=== PATIENT | female | born 1955 | race Hispanic/Latino ===

== ENCOUNTER 2024-06-24 14:56 | Emergency (ER) | payer BC, MEDICARE ==
[~2024-06-24] VITALS: Ht 152.4 cm; Wt 61.2 kg
[2024-06-24] MEDS ORDERED: PEG 3350/NA SULF,BICARB,CL/KCL 4000 ML SOLN PO ONE (15:30)
--- NOTE | 2024-06-24 15:55 | HMCIMG ---
Exam Type: ABD 1VW Clinical Information: CONSTIPATION Comparison: None Findings: Abdomen demonstrates no evidence of pathologic calcification or soft tissue mass. There are no radiopacities to suggest calculous disease. The intestinal gas pattern is within normal limits without evidence of dilatation to suggest obstruction or adynamic ileus. The bony structures are unremarkable. Postoperative changes lumbosacral junction and status post cholecystectomy. IMPRESSION: Normal abdomen.
[2024-06-24 16:48] LABS: BASOPHILS # (AUTO) 0.04 K/uL (0.00-0.20); BASOPHILS % (AUTO) 0.5 % (0.0-5.0); EOSINOPHILS # (AUTO) 0.15 K/uL (0.00-0.70); EOSINOPHILS % (AUTO) 1.8 % (0.0-8.0); HEMATOCRIT 40.6 % (36-48); IMMATURE GRANULOCYTE ABSOLUTE 0.03 K/uL (0-1); LYMPHOCYTES % (AUTO) 23.3 % (21.0-51.0); MEAN CORPUSCULAR HEMOGLOBIN 32.6 pg (27.0-33.0); MEAN CORPUSCULAR HGB CONC 32.8 g/dL (32.0-36.0); MEAN CORPUSCULAR VOLUME 99.5 fL (79-99); MONOCYTES # (AUTO) 0.7 K/uL (0.1-1.0); MONOCYTES % (AUTO) 7.8 % (3.0-13.0); NEUTROPHILS # (AUTO) 5.6 K/uL (1.8-7.7); NEUTROPHILS % (AUTO) 66.2 % (40.0-77.0); PLATELET COUNT (AUTO) 113 K/uL (130-400); RED BLOOD CELL COUNT(AUTO) 4.08 MIL/uL (4.00-5.50); WHITE BLOOD COUNT (AUTO) 8.4 K/uL (4.8-10.8)
[2024-06-24 16:50] LABS: CREATININE 0.9 mg/dL (0.5-1.0); POTASSIUM 3.6 mmol/L (3.5-5.1)
[2024-06-24 17:05] VITALS: BP 141/67; PULSE 85; RESP 16; TEMP 98.3; O2SAT 97
[2024-06-24] MEDS: MAGNESIUM CITRATE 296 ML SOLUTION PO ONE (17:30)
[2024-06-24 17:31] LABS: APPEARANCE,URINE CLEAR (CLEAR); BILIRUBIN,URINE NEGATIVE (NEGATIVE); COLOR,URINE LIGHT-YELLOW (YELLOW); GLUCOSE, URINE (UA) NEGATIVE (NEGATIVE); KETONES,URINE NEGATIVE (NEGATIVE); LEUKOCYTE ESTERASE ,URINE NEGATIVE Leu/uL (NEGATIVE); NITRATE,URINE NEGATIVE (NEGATIVE); OCCULT BLOOD,URINE MODERATE (NEGATIVE); PROTEIN,URINE 30 mg/dL (NEGATIVE); UROBILINOGEN,URINE 0.2 mg/dL (0.2-1.0)
[2024-06-24 17:41] LABS: BACTERIA,URINE RARE /HPF (None Seen); SQUAMOUS EPITHELIAL CELL,UR RARE /HPF (0-2)
--- NOTE | 2024-06-24 17:55 | ERN ---
General Chief Complaint: Back Pain-No Injury Stated Complaint: LEFT LOWER BACK PAIN Source: patient History of Present Illness Initial Comments PATIENT IS A 60-YEAR-OLD FEMALE COMING IN TO BE EVALUATED FOR LEFT FLANK PAIN. PATIENT STATES THE FLANK PAIN BEGAN A COUPLE OF DAYS AGO. ALONG WITH THIS PATIENT STATES THAT HE HAS BEEN HAVING PROBLEMS DEFECATING. NO FEVER OR CHILLS. Allergies: Coded Allergies: No Known Allergies (Unverified Allergy, Unknown, 06/24/24) Past Medical History Past Medical History: Anxiety, Diabetes-Type II, High Cholesterol, Hypertension Past Surgical History: Cholecystectomy, Other Surgical History Other: BACK SX, SHOULDER ROS Dictation CONSTITUTIONAL: NO CHILLS, NO FEVER, NO WEAKNESS, NO DIAPHORESIS, NO MALAISE. HEAD/FACE: NO SIGNS OF TRAUMA. EENT: NO EYE PAIN, NO BLURRED VISION, NO TEARING, NO DOUBLE VISION, NO EAR PAIN, NO EAR DISCHARGE, NO NOSE PAIN, NO NASAL CONGESTION, NO THROAT PAIN, NO THROAT SWELLING, NO MOUTH PAIN. RESPIRATORY: NO COUGH, NO ORTHOPNEA, NO SOB, NO STRIDOR, NO WHEEZING. CARDIOVASCULAR: NO CHEST PAIN, NO EDEMA, NO PALPITATIONS, NO SYNCOPE. GASTROINTESTINAL/ABDOMINAL: NO ABDOMINAL PAIN, NO CONSTIPATION, NO DIARRHEA, NO NAUSEA, NO VOMITING. GENITOURINARY: NO ABNORMAL DISCHARGE, NO DYSURIA, NO FREQUENT URINATION, NO HE MATURIA. NO COMPLAINTS OF PAIN IN THE GENITALS. MUSCULOSKELETAL: NO BACK PAIN, NO GOUT, NO JOINT PAIN, NO JOINT SWELLING, NO M USCLE PAIN, NO MUSCLE STIFFNESS, NO NECK PAIN. INTEGUMENTARY: NO CHANGE IN COLOR, NO CHANGE IN HAIR/NAILS, NO DRYNESS, NO LESI ON, NO LUMPS, NO RASH. NEUROLOGICAL/PSYCH: NO ANXIETY, NOT DEPRESSED, NO EMOTIONAL PROBLEM, NO HEADACHE, NO NUMBNESS, NO PRE-EXISTING DEFICIT, NO HISTORY OF SEIZURES, NO TREMORS, NO WEAKNESS. HEMATOLOGIC/LYMPHATIC: NOT ANEMIC, NO HISTORY OF BLOOD CLOTS, NO APPARENT BLEEDING, NO BRUISING, GLANDS NOT SWOLLEN. ALL SYSTEMS NEGATIVE, EXCEPT NOTED. Physical Exam Physical Exam Dictation VITAL SIGNS: REVIEWED. GENERAL APPEARANCE: ALERT, ORIENTED X3, NO ACUTE DISTRESS, OBESE. HEAD AND FACE: NON-TRAUMATIC. EYES: PERRL, PINK CONJUNCTIVAS, EYELID NO TRAUMA, ANTERIOR CHAMBER CLEAR. EARS: PINNAS INTACT AND NO SIGNS OF TRAUMA OR ERYTHEMA. EAR CANALS CLEAR AND NO DISCHARGE. TMS NO ERYTHEMA. NOSE: NO DISCHARGE, NO BLEEDING. OROPHARYNX: MOUTH NORMAL, TEETH NO CARIES, TONGUE PINK. PHARYNX CLEAR, NO ERYTHEMA. TONSILS NO EXUDATES, NO ABSCESSES NOTED. MUCOUS MEMBRANE MOIST. NECK: SUPPLE, NON-TENDER, NO THYROMEGALY, NO MASSES, NO JVD, NO BRUITS. BREAST: DEFERRED. CHEST: NO TENDERNESS, NO CREPITUS, NO PARADOXICAL MOVEMENT, NO RETRACTIONS. LUNGS: CLEAR, WELL-VENTILATED, SYMMETRIC, NO RALES, NO WHEEZING, NO RHONCHI, NO STRIDOR, GOOD BREATH SOUNDS BILATERALLY. HEART: REGULAR RATE, REGULAR RHYTHM, NO MURMUR, NO GALLOPS. VASCULAR: NO PERIPHERAL EDEMA. ABDOMEN: SOFT, POSITIVE BOWEL SOUNDS, NONDISTENDED, NO GUARDING, NONTENDER, NO REBOUND, NO MASSES NO HEPATOMEGALY, NO SPLENOMEGALY, NO LA'S SIGN, NO HERNIAS. RECTAL: DEFERRED. GENITAL: DEFERRED. NEUROLOGICAL: NORMAL SPEECH, GROSS MOTOR FUNCTION INTACT, GROSS SENSORY FUNCTION INTACT. MUSCULOSKELETAL: NECK NONTENDER, FULL RANGE OF MOTION, BACK NONTENDER, FULL RANGE OF MOTION. EXTREMITIES: NONTENDER, FULL RANGE OF MOTION. SKIN: COLOR PINK, DRY, NO TURGOR, NO RASH, NO LACERATIONS, NO ABRASIONS, NO CONTUSIONS. LYMPHATICS: DEFERRED. Results Laboratory and Microbiology Lab and Micro Result Laboratory Tests Test 06/24/24 16:10 06/24/24 17:18 White Blood Count 8.4 K/uL (4.8-10.8) Red Blood Count 4.08 MIL/uL (4.00-5.50) Hemoglobin 13.3 g/dL (12.0-16.0) Hematocrit 40.6 % (36-48) Mean Corpuscular Volume 99.5 fL (79-99) H Mean Corpuscular Hemoglobin 32.6 pg (27.0-33.0) Mean Corpuscular Hemoglobin Concent 32.8 g/dL (32.0-36.0) Red Cell Distribution Width 14.0 % (11.0-15.5) Platelet Count 113 K/uL (130-400) L Mean Platelet Volume 12.4 fL (7.5-10.5) H Immature Granulocyte % (Auto) 0.4 % (0-1) Neutrophils (%) (Auto) 66.2 % (40.0-77.0) Lymphocytes (%) (Auto) 23.3 % (21.0-51.0) Monocytes (%) (Auto) 7.8 % (3.0-13.0) Eosinophils (%) (Auto) 1.8 % (0.0-8.0) Basophils (%) (Auto) 0.5 % (0.0-5.0) Neutrophils # (Auto) 5.6 K/uL (1.8-7.7) Lymphocytes # (Auto) 2.0 K/uL (1.0-4.8) Monocytes # (Auto) 0.7 K/uL (0.1-1.0) Eosinophils # (Auto) 0.15 K/uL (0.00-0.70) Basophils # (Auto) 0.04 K/uL (0.00-0.20) Absolute Immature Granulocyte (auto 0.03 K/uL (0-1) Nucleated Red Blood Cells 0.0 % (0.0-0.19) Sodium Level 141 mmol/L (136-145) Potassium Level 3.6 mmol/L (3.5-5.1) Chloride Level 102 mmol/L (101-111) Carbon Dioxide Level 30 mmol/L (21-32) Blood Urea Nitrogen 10 mg/dL (7-18) Creatinine 0.9 mg/dL (0.5-1.0) Glomerular Filtration Rate Calc 70 mL/min (>90) Random Glucose 97 mg/dL (70-105) Total Calcium 9.3 mg/dL (8.5-10.1) Urine Color LIGHT-YELLOW (YELLOW) Urine Appearance CLEAR (CLEAR) Urine pH 6.0 (5.0-8.0) Urine Specific Kathryn 1.004 (1.001-1.031) Urine Protein 30 mg/dL (NEGATIVE) H Urine Glucose (UA) NEGATIVE mg/dL (NEGATIVE) Urine Ketones NEGATIVE mg/dL (NEGATIVE) Urine Occult Blood MODERATE (NEGATIVE) H Urine Nitrate NEGATIVE (NEGATIVE) Urine Bilirubin NEGATIVE mg/dL (NEGATIVE) Urine Urobilinogen 0.2 mg/dL (0.2-1.0) Urine Leukocyte Esterase NEGATIVE Brenda/uL Urine RBC 2-5 /HPF (0-1) H Urine WBC 2-5 /HPF (0-1) H Urine Squamous Epithelial Cells RARE /HPF (0-2) Urine Bacteria RARE /HPF (None Seen) Labs Reviewed?: Yes EKG/XRAY/US/CT/MRI X-RAY Comment [place] [id number] [id number] IMAGING REPORT Signed PATIENT: TITUS HILLIARD MR#: [id number] : 1955 SEX: F AGE: 68 LOCATION: ED ORDER 151 STATUS: REG ER REPORT#: [id number] SERVICE [id number] REASON: CONSTIPATION ORDERING PHYSICIAN: DEMI OLGUIN MD PROCEDURE: ABD 1VW - ABD 1VW Exam Type: ABD 1VW Clinical Information: CONSTIPATION Comparison: None Findings: Abdomen demonstrates no evidence of pathologic calcification or soft tissue mass. There are no radiopacities to suggest calculous disease. The intestinal gas pattern is within normal limits without evidence of dilatation to suggest obstruction or adynamic ileus. The bony structures are unremarkable. Postoperative changes lumbosacral junction and status post cholecystectomy. IMPRESSION: Normal abdomen. DICTATED BY: NERY RIDDLE MD DATE: 06/24/241551 ELECTRONICALLY SIGNED BY: NERY RIDDLE MD DATE: 06/24/[address] Scan Comment [place] [id number] [id number] IMAGING REPORT Signed PATIENT: TITUS HILLIARD MR#: [id number] : 1955 SEX: F AGE: 68 LOCATION: ED ORDER 53 STATUS: REG ER REPORT#: [id number] SERVICE 175 REASON: LEFT FLANK PAIN ORDERING PHYSICIAN: DEMI OLGUIN MD PROCEDURE: ABD PEL WO - CT ABDOMEN/PELVIS W/O CONTRAST CT ABDOMEN/PELVIS W/O CONTRAST INDICATION: LEFT FLANK PAIN TECHNIQUE: CT ABDOMEN/PELVIS W/O CONTRAST. Oral contrast was not given. Coronal and sagittal reformats were performed. CT was performed with one or more of the following dose reduction techniques: Automated exposure control, adjustment of the mA and/or kV according to the patient's size, or use of the iterative reconstruction technique. Comparison: 11/16/2009 FINDINGS: The noncontrast nature this study limits evaluation of abdominal viscera. Mild atelectatic changes are seen in the lung bases. There is hepatic steatosis. Cholecystectomy changes are noted. Stable appearance of the spleen, pancreas and adrenal glands. No hydronephrosis or renal calculus is seen. Indeterminate density in the left kidney measuring 1.4 cm. Consider correlation with nonemergent ultrasound. Heterogeneous mass seen in the pelvis measuring 10.2 x 6.7 cm which may may represent lobulated uterus versus malignancy. Consider correlation with pelvic ultrasound. Small amount of free fluid is seen in the pelvis and lower abdomen. Diverticulosis coli without evidence of acute diverticulitis. There is no free abdominal air. No bowel obstruction identified. Appendix is normal in caliber. Atherosclerotic changes of the aorta with calcified plaques. Degenerative changes of the spine are seen. IMPRESSION: No hydronephrosis or renal calculus is seen. Indeterminate density in the left kidney measuring 1.4 cm. Consider correlation with nonemergent ultrasound. Heterogeneous mass seen in the pelvis measuring 10.2 x 6.7 cm which may may represent lobulated uterus versus malignancy. Consider correlation with pelvic ultrasound. Small amount of free fluid is seen in the pelvis and lower abdomen. Diverticulosis coli without evidence of acute diverticulitis. DICTATED BY: STEPHANIE GELLER MD DATE: 06/24/241856 ELECTRONICALLY SIGNED BY: STEPHANIE GELLER MD DATE: 06/24/24 190 [facility] MDM: DIFFERENTIAL DIAGNOSIS: RIGHT KIDNEY MASS, UTERINE MASS, PATIENT IS A 68-YEAR-OLD FEMALE COMING IN TO BE EVALUATED FOR RIGHT SIDED BACK PAIN. CT DISCLOSE A RIGHT RENAL MASS AND THE RIGHT UTERINE MASS. ADVISED HER A PPROPRIATE FOLLOW UP WITH PCP AND FURTHER EVALUATION BY MEDICAL TECH. PATIENT WILL BE DISCHARGED IN STABLE CONDITION. ED Course Orders Procedure Category Date Status Time Cbc With Differential LAB 06/24/24 Complete 15:09 Basic Metabolic Panel LAB 06/24/24 Complete 15:09 Urinalysis LAB 06/24/24 Complete W/Microscopic 15:09 Abd 1vw RAD 06/24/24 Resulted 15:09 Peg 3350/Na PHA 2/15/25 Complete Sulf,Bicarb,Cl/Kcl 15:30 Magnesium Citrate PHA 06/24/24 Complete (Magnesium Citrate) 17:30 Ct Abdomen/Pelvis W/O CT 06/24/24 Resulted Contrast 17:53 Current Medications Medications (Trade) Dose Ordered Sig/Autumn Route PRN Reason Start Time Stop Time Status Last Admin Dose Admin Magnesium Citrate (Magnesium Citrate) 296 ml ONCE ONCE PO 06/24/24 17:30 06/24/24 17:31 DC 06/24/24 17:30 Polyethylene Glycol/ Electrolytes (Golytely/Colyte Soln) 4,000 ml ONCE ONCE PO 06/24/24 15:30 06/24/24 17:05 DC Vital Signs Date Time Temp Pulse Resp B/P (MAP) Pulse Ox O2 Delivery O2 Flow Rate FiO2 06/24/24 17:05 98.2 85 16 141/67 97 Room Air* 0 21 06/24/24 15:00 98.2 85 16 141/67 97 Room Air 0 DX & DISP Disposition: Discharge Departure Impression: Primary Impression: Right renal mass Additional Impressions: Uterine mass, Constipation Condition: Stable Additional Instructions: FOLLOW-UP WITH PRIMARY CARE PROVIDER IN 1 TO 2 DAYS. TAKE MEDICATIONS DIRECTED HERE IN THE EMERGENCY ROOM. OKAY TO CONTINUE HOME MEDICATIONS UNLESS OTHERWISE DISCUSSED DURING YOUR VISIT IN THE EMERGENCY ROOM TODAY. RETURN TO YOUR NEAREST EMERGENCY ROOM IF SYMPTOMS WORSEN OR IF THERE IS NO IMPROVEMENT. CALL 911 IF YOU NEED IMMEDIATE ASSISTANCE. TAKE TYLENOL [id number] NEEDED AND IF NO CONTRAINDICATIONS ARE PRESENT. INCREASE ORAL HYDRATION. A WOUND CULTURE OR URINE CULTURE WAS ORDERED HERE IN THE EMERGENCY ROOM DEPARTMENT PLEASE FOLLOW-UP WITH PRIMARY CARE PROVIDER AND ADVISE THEM TO GET REPEAT PORTS FROM OUR FACILITY. IF YOU HAD ANY TONYA WRAP/SPLINTS THAT WERE APPLIED HERE, PLEASE DO NOT REMOVE THEM UNTIL YOU SEE YOUR PRIMARY CARE OR SPECIALTY. REFERRALS: Referrals: KRISTOFER BOWLING MD (PCP) Time of Disposition: 19:11 DEMI OLGUIN MD Jun 24, 2024 17:55
--- NOTE | 2024-06-24 19:02 | HMCIMG ---
CT ABDOMEN/PELVIS W/O CONTRAST INDICATION: LEFT FLANK PAIN TECHNIQUE: CT ABDOMEN/PELVIS W/O CONTRAST. Oral contrast was not given. Coronal and sagittal reformats were performed. CT was performed with one or more of the following dose reduction techniques: Automated exposure control, adjustment of the mA and/or kV according to the patient's size, or use of the iterative reconstruction technique. Comparison: 11/16/2009 FINDINGS: The noncontrast nature this study limits evaluation of abdominal viscera. Mild atelectatic changes are seen in the lung bases. There is hepatic steatosis. Cholecystectomy changes are noted. Stable appearance of the spleen, pancreas and adrenal glands. No hydronephrosis or renal calculus is seen. Indeterminate density in the left kidney measuring 1.4 cm. Consider correlation with nonemergent ultrasound. Heterogeneous mass seen in the pelvis measuring 10.2 x 6.7 cm which may may represent lobulated uterus versus malignancy. Consider correlation with pelvic ultrasound. Small amount of free fluid is seen in the pelvis and lower abdomen. Diverticulosis coli without evidence of acute diverticulitis. There is no free abdominal air. No bowel obstruction identified. Appendix is normal in caliber. Atherosclerotic changes of the aorta with calcified plaques. Degenerative changes of the spine are seen. IMPRESSION: No hydronephrosis or renal calculus is seen. Indeterminate density in the left kidney measuring 1.4 cm. Consider correlation with nonemergent ultrasound. Heterogeneous mass seen in the pelvis measuring 10.2 x 6.7 cm which may may represent lobulated uterus versus malignancy. Consider correlation with pelvic ultrasound. Small amount of free fluid is seen in the pelvis and lower abdomen. Diverticulosis coli without evidence of acute diverticulitis.
== END 2024-06-24 19:20 | disposition home or self-care (01) ==
LOC: EDH 14:56
DX: N28.89 Other specified disorders of kidney and ureter (principal); K59.00 Constipation, unspecified; E11.9 Type 2 diabetes mellitus without complications; E78.00 Pure hypercholesterolemia, unspecified; I10 Essential (primary) hypertension; Z90.49 Acquired absence of other specified parts of digestive tract
CPT/HCPCS: 36415; 74018; 74176; 80048; 81001; 85025; 99284